=== PATIENT | female | born 1960 | race Caucasian/White ===

== ENCOUNTER 2023-11-12 11:10 | Emergency (ER) | payer OTHER ==
[~2023-11-12] VITALS: Ht 149.9 cm; Wt 76.0 kg
[2023-11-12] MEDS ORDERED: TORSEMIDE10 MG PO (11:23)
[2023-11-12] MEDS ORDERED: COLCRYS0.6 MG PO (11:23)
[2023-11-12] MEDS ORDERED: LISINOPRIL20 MG PO (11:24)
[2023-11-12] MEDS ORDERED: OMEPRAZOLE20 MG PO (11:24)
[2023-11-12] MEDS ORDERED: ALLOPURINOL100 MG PO (11:25)
[2023-11-12] MEDS ORDERED: VITAMIN D21250 MCG PO (11:26)
[2023-11-12] MEDS ORDERED: METFORMIN HCL500 M2 PO (11:27)
[2023-11-12] MEDS ORDERED: K-TAB ER20 MEQ PO (11:27)
[2023-11-12 11:46] LABS: BASOPHILS 1.1 % (0-2); EOSINOPHILS 1.2 % (0-6); HEMATOCRIT 38.5 % (35.0-50.0); MCH 30.1 (27-36); MCHC 33.8 g/dl (30-36); MCV 89.2 fl (81-99); MONOCYTES 5.9 % (0-12); NEUTROPHILS 70.8 % (39-80); PLATELET COUNT 175 K/uL (140-440); RBC 4.31 M/ul (4.3-5.7); RDW 15.8 (10.5-15.0)
[2023-11-12 12:01] LABS: ALBUMIN 3.7 g/dL (3.4-5.0); ALBUMIN/GLOBULIN RATIO 1.16 (1.1-2.4); ANION GAP 16.5 (7-21); BILIRUBIN, TOTAL 0.5 ng/dL (0.2-1.0); BUN/CREATININE RATIO 22.85 (6.0-28.6); CALCIUM 9.6 mg/dL (8.5-10.1); CREATININE, SERUM 1.05 mg/dL (0.55-1.02); MAGNESIUM 1.2 mg/dL (1.8-2.4); POTASSIUM 4.5 mmol/L (3.5-5.1); PROTEIN, TOTAL 6.9 g/dL (6.4-8.2)
[2023-11-12] MEDS ORDERED: MAGNESIUM SULFATE 2 GM/50 ML BAG IV ONE (13:15)
[2023-11-12] MEDS ORDERED: PHILLIPS500 MG PO (13:40)
[2023-11-12 15:18] VITALS: BP 135/80
== END 2023-11-12 15:18 | disposition home or self-care (01) ==
LOC: ED 11:10
PROVIDERS: Family Medicine
DX: E83.42 Hypomagnesemia (principal); S00.03XA Contusion of scalp, initial encounter; E11.9 Type 2 diabetes mellitus without complications; I10 Essential (primary) hypertension; W18.30XA Fall on same level, unspecified, initial encounter; Z96.643 Presence of artificial hip joint, bilateral; Z91.040 Latex allergy status; Z88.8 Allergy status to other drugs, medicaments and biological substances; Z79.899 Other long term (current) drug therapy; Z79.84 Long term (current) use of oral hypoglycemic drugs
CPT/HCPCS: 36415; 70450; 72100; 72125; 73502; 80053; 83735; 85025; 96365; 99284-25; J3475

== ENCOUNTER 2024-04-22 22:54 | Observation (INO) | payer MEDICARE ==
[~2024-04-22] VITALS: Ht 149.9 cm; Wt 75.0 kg
[~2024-04-22 22:54] MED LIST: ALLOPURINOL100 MG PO; COLCRYS0.6 MG PO; K-TAB ER20 MEQ PO; LISINOPRIL20 MG PO; METFORMIN HCL500 M2 PO; OMEPRAZOLE20 MG PO; PHILLIPS500 MG PO; TORSEMIDE10 MG PO; VITAMIN D21250 MCG PO
[2024-04-22 23:13] LABS: HEMOGLOBIN 14.3 g/dL (12.0-18.0); MONOCYTES 6.3 % (0-12)
[2024-04-22 23:16] LABS: EOSINOPHILS 1.3 % (0-6); HEMATOCRIT 41.6 % (35.0-50.0); LYMPHOCYTES 29.6 % (24-44); MCH 31.1 (27-36); MCHC 34.3 g/dl (30-36); MCV 90.6 fl (81-99); NEUTROPHILS 61.8 % (39-80); PLATELET COUNT 169 K/uL (140-440); RBC 4.59 M/ul (4.3-5.7); RDW 15.8 (10.5-15.0)
[2024-04-22 23:35] LABS: ALBUMIN 3.8 g/dL (3.4-5.0); ALBUMIN/GLOBULIN RATIO 1.03 (1.1-2.4); ALCOHOL, MEDICAL <3 ng/dL (<3); ALKALINE PHOSPHATASE 72 U/L (46-116); ALT (SGPT) 35 U/L (14-59); ANION GAP 17.1 (7-21); AST (SGOT) 25 U/L (15-37); BILIRUBIN, TOTAL 0.3 ng/dL (0.2-1.0); BUN/CREATININE RATIO 16.84 (6.0-28.6); CALCIUM 9.8 mg/dL (8.5-10.1); CARBON DIOXIDE 22 mmol/L (21-32); CHLORIDE 99 mmol/L (98-107); CREATININE, SERUM 0.95 mg/dL (0.55-1.02); GLOMERULAR FILTRATION RATE,EST 66 mL/min (>60); POTASSIUM 4.1 mmol/L (3.5-5.1); PROTEIN, TOTAL 7.5 g/dL (6.4-8.2); UREA NITROGEN 16 mg/dL (7-18)
[2024-04-23] VITALS (9 sets, daily range): BP systolic 120–147; BP diastolic 55–667
[2024-04-23 00:46] LABS: BILIRUBIN, URINE NEGATIVE (negative); BLOOD/HGB, URINE NEGATIVE (Negative); KETONE, URINE NEGATIVE (Negative); LEUK ESTERASE, URINE NEGATIVE (negative); NITRITE, URINE NEGATIVE (negative)
[2024-04-23 01:00] LABS: AMPHETAMINES, URINE NEGATIVE (NEGATIVE); BARBITURATES, URINE NEGATIVE (NEGATIVE); BENZODIAZEPINE, URINE NEGATIVE (NEGATIVE); BUPRENORPHINE, URINE NEGATIVE (NEGATIVE); CANNABINOID, URINE NEGATIVE (NEGATIVE); COCAINE, URINE NEGATIVE (NEGATIVE); ECSTASY, URINE NEGATIVE (NEGATIVE); FENTANYL, URINE NEGATIVE (NEGATIVE); METHADONE, URINE NEGATIVE (NEGATIVE); OPIATES, URINE NEGATIVE (NEGATIVE); OXYCODONE, URINE NEGATIVE (NEGATIVE); PHENCYCLIDINE, URINE NEGATIVE (NEGATIVE)
[2024-04-23] MEDS ORDERED: ondansetron HCL 4 MG/2 ML VIAL IV PRN ×2 (01:30→09:15)
[2024-04-23] MEDS ORDERED: CLOPIDOGREL BISULFATE 75 MG TAB PO ONE (01:30)
[2024-04-23] MEDS ORDERED: ASPIRIN 81 MG CHEW PO ONE (01:30)
[2024-04-23] MEDS ORDERED: ACETAMINOPHEN 325 MG TAB PO PRN ×2 (01:30→09:15)
--- NOTE | 2024-04-23 02:17 | NUR ---
PATIENT ARRIVED TO THE FLOOR VIA STRETCHER. PATIENT TRANSFFERED BY STAFF FROM STRETCHER TO HOSPITAL BED. PATIENTS VITALS TAKEN AND RECORDED. PATIENTS ADMISSION COMPLETED. PATIENT ORIENTED TO ROOM AND PLAN OF CARE. PATIENTS PRIMARY RN REMAINS IN ROOM. BED ALARM ON FOR SAFETY.
--- NOTE | 2024-04-23 03:05 | NUR ---
0200 - pt arrived from ed via stretcher. Total help needed to transfer to bed. Pt on room air, alert and oriented x4. Cooperative with admit questions and assessments. On room air, clear lungs bilat. SL LAC patent. LBM 04/22, no c/o CP, speech clear, slight R lip droopiness noted. abd aoft. involuntary tremors in hands noted. very weak stiff LE, edema 3+ ankles and feet, elevated. Pure wick in place, patent draining clear yellow urine.
--- NOTE | 2024-04-23 04:29 | NUR ---
Resting, eys closed, no s/sx distress, tele#[address] in place, SR. pure wick in place
--- NOTE | 2024-04-23 06:27 | NUR ---
Has slept since admission. On room air, clear lungs, tele#[address] SR[address] denies c/o CP. pure wick in place, draining clear yellow urine. LE edema improved. R ankle/foot 2+, L ankle/foot 1+, elevated, helped with turning and repositioning
--- NOTE | 2024-04-23 07:02 | NUR ---
Pt report received from BAKARI Jaime. Pt is resting supine in bed, eyes closed, breathing is regular, even and non-labored. She awakens easily to quiet noise while I was updating the white board. Pt requested a sip of water and I assisted her to take this as she seemed stiff. Side rails up, call light in reach.
[2024-04-23 08:22] LABS: CHOLESTEROL/HDL RATIO 4.3
[2024-04-23] MEDS ORDERED: bisacodyL 10 MG SUPP PR PRN (09:15)
[2024-04-23] MEDS ORDERED: GLUCAGON,HUMAN RECOMBINANT 1 MG/ML VIAL SUB-Q PRN (09:15)
[2024-04-23] MEDS ORDERED: DEXTROSE 5% 1,000 ML IV PRN (09:15)
[2024-04-23] MEDS ORDERED: DEXTROSE 50% 50 ML SYR IV PRN ×2 (09:15)
[2024-04-23] MEDS ORDERED: IBLOOD GLUCOSE TEST STRIP 1 EA TEST XX PRN (09:15)
--- NOTE | 2024-04-23 09:26 | NUR ---
PATIENT SITTING UP IN BED, VISITOR IN ROOM. VITALS AND I&O'S DONE AND CHARTED. WARM WASHCLOTH GIVEN. AM CARE DONE. CALL LIGHT INR EACH. NO FURTHER NEEDS AT THIS TIME.
[2024-04-23] MEDS ORDERED: allopurinoL 100 MG TAB PO SCH (09:35)
[2024-04-23] MEDS ORDERED: PANTOPRAZOLE SODIUM 40 MG TABEC PO SCH (09:35)
[2024-04-23] MEDS ORDERED: DULOXETINE HCL 30 MG CAP PO SCH (09:35)
[2024-04-23] MEDS ORDERED: CLOPIDOGREL BISULFATE 75 MG TAB PO SCH (09:45)
[2024-04-23] MEDS ORDERED: ASPIRIN 81 MG CHEW PO SCH (09:45)
[2024-04-23] MEDS ORDERED: KETOCONAZOLE120 ML TOP (09:52)
[2024-04-23] MEDS ORDERED: DULOXETINE HCL30 MG PO (09:53)
[2024-04-23] MEDS ORDERED: GLIPIZIDE ER2.5 MG PO (09:54)
[2024-04-23] MEDS ORDERED: POTASSIUM CHLO10 ME2 PO (09:55)
--- NOTE | 2024-04-23 09:56 | NUR ---
PATIENT ALERT AND ORIENTED IN BED. SIGNIFICANT OTHER AT BEDSIDE. VERIFIED DEMO GRAPHICS. PATIENT LIFES IN SINGLE LEVEL HOME WITH SIGNIFICANT OTHER. 3 STEPS TO GET INSIDE, HAS SOME DIFFICULTY BUT SHE IS ABLE TO USE THE STEPS. SHE HAS A WALKER AND A CANE. SHE PRIMARILY USES THE WALKER FOR AMBULATION. SHE DOES NOT DRIVE, SIGNIFICANT OTHER PROVIDES TRANSPORTATION. ABLE TO PAY FOR UTILITIES AND OBTAIN FOOD AND MEDICATIONS. NO FINANCIAL HARDSHIP. SHE PLANS TO RETURN HOME WHEN MEDICALLY STABLE. PENDING THERAPY EVALUATIONS FOR POTENTIAL NEEDS AT CT.
[2024-04-23] MEDS ORDERED: MAGNESIUM OXID500 MG PO (09:57)
--- NOTE | 2024-04-23 11:38 | NUR ---
UR CLINICAL REVIEW: 2 MN FOR VERSALUS-MEETS OBS FOR TIA MEDICARE OBS 04/23/24 @ 0910 ORDER MATCHES REG NO AUTH REQUIRED PER MEDICARE GUIDELINES DISCHARGE PENDING FURTHER STUDIES AND EVALUATIONS 04/24/24
[2024-04-23] MEDS ORDERED: PHARMACY RENAL DOSE ADJUSTMENT 1 DOSE MISC PO SCH (12:00)
[2024-04-23] MEDS ORDERED: IBLOOD GLUCOSE TEST STRIP 1 EA TEST VI SCH (12:00)
[2024-04-23] MEDS ORDERED: INSULIN LISPRO 100 UNIT/ML ML SUB-Q SCH (12:00)
--- NOTE | 2024-04-23 12:32 | NUR ---
MED REC COMPLETE
--- NOTE | 2024-04-23 13:22 | NUR ---
Received PC from [employer] notifying us that the MRI results for this pt are resulted. Dr. Murrieta notified.
--- NOTE | 2024-04-23 19:28 | NUR ---
Awake, no c/o CP, no SOB, alert and oriented x4, light R mouth droopines noted, not much difference with hand molecular geneticist. Tele dc'd, no IV. edema 2+ R foot and 1+ L ankle/foot. turns and repositions self in bed. tolerating diet well. no other c/o
[2024-04-23] MEDS ORDERED: ATORVASTATIN 40 MG TAB PO SCH (21:00)
[2024-04-23] MEDS ORDERED: MELATONIN 3 MG TAB PO PRN (21:00)
--- NOTE | 2024-04-24 00:26 | NUR ---
Resting, eyes closed, no s/sx distress. purewick in place, draining clear yellow urine. LE edema, elevated. turns and repositions self in bed
[2024-04-24 02:25] VITALS: BP 106/72
--- NOTE | 2024-04-24 02:49 | NUR ---
Awakens easily, coperative with vitals and assessment. Repositioned in bed, jaylen perez changed. edema to LE 2+ L midcalf to toes, pitting, 1+ R ankle/foot, elevated w pillows, denies CP. red tender area formed IV site LAC
--- NOTE | 2024-04-24 04:41 | NUR ---
resting, eyse closed, on room air. pure wick in place, LE elevated
[2024-04-24 05:56] LABS: EOSINOPHILS 1.5 % (0-6); HEMATOCRIT 39.2 % (35.0-50.0); HEMOGLOBIN 13.2 g/dL (12.0-18.0); LYMPHOCYTES 27.2 % (24-44); MCH 30.4 (27-36); MCHC 33.8 g/dl (30-36); MCV 89.9 fl (81-99); MONOCYTES 6.1 % (0-12); NEUTROPHILS 64.2 % (39-80); PLATELET COUNT 137 K/uL (140-440); RBC 4.36 M/ul (4.3-5.7); RDW 15.5 (10.5-15.0)
[2024-04-24 06:16] LABS: ALBUMIN 3.3 g/dL (3.4-5.0); BILIRUBIN, TOTAL 0.4 ng/dL (0.2-1.0); BUN/CREATININE RATIO 17.58 (6.0-28.6); CREATININE, SERUM 0.91 mg/dL (0.55-1.02); PROTEIN, TOTAL 6.6 g/dL (6.4-8.2)
[2024-04-24 06:48] VITALS: BP 108/58
[2024-04-24 06:49] VITALS: BP 108/58
--- NOTE | 2024-04-24 07:17 | NUR ---
VERBAL REPORT RECEIVED FROM BAKARI NICE. PT AWAKE AND ALERT IN BED, NO REQUESTS AT THIS TIME.
--- NOTE | 2024-04-24 07:47 | NUR ---
PT RESTING IN BED. BG COMPLETE. PT REQ PUREWICK TO BE REMOVED. PUREWICK REMOVED. BRIEF CHECKED, CLEAN AND DRY. WARM WASH RAG PROVIDED. PT REFUSED GETTING UP TO CHAIR. PT REQ SHOWER. PLAN MADE TO SHOWER AFTER BREAKFAST PER PT REQ. PT REPOS IN BED. ICE WATER PROVIDED. PT DENIES ANY FURTHER NEEDS AT THIS TIME. CALL LIGHT IN REACH.
[2024-04-24] MEDS ORDERED: CLOPIDOGREL75 MG PO (09:11)
[2024-04-24] MEDS ORDERED: ASPIRIN81 MG PO (09:12)
[2024-04-24] MEDS ORDERED: CRESTOR40 MG PO (09:12)
[2024-04-24 09:32] VITALS: BP 124/75
--- NOTE | 2024-04-24 09:37 | NUR ---
pt resting in bed. vitals complete. breakfast tray cleared. pt declines shower and states "i'll have my help me with it when we leave". pt also declines getting up to the chair at this time. ice water refreshed. declines need to void at this time. declines any needs at this time, call light in reach.
--- NOTE | 2024-04-24 09:49 | NUR ---
REFERRAL WITH FACESHEET, ORDERS, H&P, DC SUMMARY FAXED TO [facility]
--- NOTE | 2024-04-24 10:39 | NUR ---
DISCUSSED DISCHARGE INSTRUCTIONS WITH PT, PT VERBALIZES UNDERSTANDING. PT STATES SHE WANTS TO WAIT FOR HER TO ARRIVE AND HAVE HIM ASSIST HER TO GET DRESS.
--- NOTE | 2024-04-24 10:58 | NUR ---
PT RESTING IN BED. DECLINES ANY NEEDS AT THIS TIME. RR EVEN AND UNLABORED. CALL LIGHT IN REACH
--- NOTE | 2024-04-24 11:48 | NUR ---
PT'S SPOUSE ARRIVES, ASSIST PT TO DRESS. PT LEAVES UNIT VIA WHEELCHAIR ESCORTED BY THIS RN TO PRIVATE CAR DRIVEN BY SPOUSE.
--- NOTE | 2024-04-25 20:28 | EKG ---
[facility] [address] [facility] [address] [facility] [place], [place] [address] Signed Normal sinus rhythm Normal ECG No previous ECGs available Confirmed by Samra Lawrence DO ([id number]) on 04/25/2024 8:28:19 PM Electronically Signed By: SAMRA LAWRENCE DO 04/25/242027 PATIENT NAME: CHRISTY DUARTE Electrocardiogram DATE OF : 58 PHYSICIAN: SAMRA LAWRENCE DO REPORT #: [id number] REPORT IS CONFIDENTIAL AND NOT TO BE RELEASED WITHOUT AUTHORIZATION
== END 2024-04-24 11:48 | disposition home or self-care (01) ==
LOC: ED 22:54 → MS 22:55
PROVIDERS: Internal Medicine; ADMIT Student in an Organized Health Care Education/Training Program; ATTEND Student in an Organized Health Care Education/Training Program
DX: G45.9 Transient cerebral ischemic attack, unspecified (principal); I10 Essential (primary) hypertension; E78.5 Hyperlipidemia, unspecified; K21.9 Gastro-esophageal reflux disease without esophagitis; G47.30 Sleep apnea, unspecified; E11.9 Type 2 diabetes mellitus without complications; M10.9 Gout, unspecified; F32.9 Major depressive disorder, single episode, unspecified; Z79.84 Long term (current) use of oral hypoglycemic drugs; Z79.899 Other long term (current) drug therapy; Z91.040 Latex allergy status
CPT/HCPCS: 36415; 51701; 70450; 70496; 70498; 70544; 70551; 80053; 80061; 80307; 81003; 83036; 84484; 85025; 85060; 93005; 93010; 93306; 96374; 97161; 97165; 99285-25; A9270; G0378; G0480; J1815; J2405; Q9967

== ENCOUNTER 2024-11-02 15:30 | Observation (INO) | payer MEDICARE, OTHER ==
[~2024-11-02] VITALS: Ht 149.9 cm; Wt 74.2 kg
[~2024-11-02 15:30] MED LIST changes: +ASPIRIN81 MG PO; +CLOPIDOGREL75 MG PO; +CRESTOR40 MG PO; +DULOXETINE HCL30 MG PO; +GLIPIZIDE ER2.5 MG PO; +KETOCONAZOLE120 ML TOP; +MAGNESIUM OXID500 MG PO; +POTASSIUM CHLO10 ME2 PO
[2024-11-02 15:54] LABS: BASOPHILS 0.7 % (0.1-1.2); EOSINOPHILS 1.5 % (0.7-5.8); LYMPHOCYTES 24.0 % (19.3-51.7); MCH 28.6 PG (25.6-32.2); MCHC 32.6 g/dL (32.2-35.5); MCV 87.7 fL (79.4-94.8); MONOCYTES 5.0 % (4.7-12.5); NEUTROPHILS 68.5 % (34.0-71.1); RBC 4.89 M/uL (3.93-5.22)
[2024-11-02 16:00] LABS: INR 0.97 (0.80-1.30); PROTIME 12.2 Sec (11.2-14.2)
[2024-11-02 16:06] LABS: ALT (SGPT) 28.0 U/L (14-59); AST (SGOT) 16.0 U/L (15-37); GLOMERULAR FILTRATION RATE,EST 53.0 mL/min (>60); PROTEIN, TOTAL 7.2 g/dL (6.4-8.2); UREA NITROGEN 19.0 mg/dL (7-18)
[2024-11-02] MEDS ORDERED: ACETAMINOPHEN 325 MG TAB PO PRN (19:15)
[2024-11-02] MEDS ORDERED: CLOPIDOGREL BISULFATE 75 MG TAB PO ONE (19:30)
--- NOTE | 2024-11-02 20:08 | NUR ---
PT TRANSFERRED TO FLOOR VIA STRETCHER. GIVEN REPORT TO BAKARI DURAN. VS TAKEN, VSS. ADMISSION SCREEN PERFORMED. PT HAS CELL PHONE, WILL GIVE PURSE TO DAUGHTER TO TAKE HOME. SUPPORTIVE FAMILY AT BEDSIDE.
[2024-11-02 20:16] VITALS: BP 133/67
[2024-11-02] MEDS ORDERED: Insulin Regular, Human 100 UNIT/ML ML SUB-Q SCH (21:00)
[2024-11-02] MEDS ORDERED: IBLOOD GLUCOSE TEST STRIP 1 EA TEST VI SCH (21:00)
--- NOTE | 2024-11-02 21:30 | NUR ---
IN RM TO CHECK BG. BG LEVEL WAS 127. NO SS INSULIN NEEDED AT THIS TIME. pt INFORMED THIS RN THAT SHE HAD BEEN INCONTINENT AT THIS TIME AND NEEDED CHANGED. THIS RN AND ROLLER BEARING INSPECTOR MARISA CHANGED pt AND CHANGED THE LINENS. pt EDUCATED ABOUT USING THE CALL LIGHT WHEN SHE HAD TO GO NEXT TIME. pt DENIES ANY OTHER NEEDS AT THIS TIME. CALL LIGHT WITHIN REACH.
--- NOTE | 2024-11-02 23:30 | NUR ---
pt RESTING IN THE BED WITH EYES CLOSED. RR EVEN AND UNLABORED. CALL LIGHT WITHIN REACH.
[2024-11-03] VITALS (11 sets, daily range): BP systolic 101–119; BP diastolic 58–84
--- NOTE | 2024-11-03 01:29 | NUR ---
IN RM TO DO ASSESSMENT AND VITAL SIGNS. pt HAS EXPRESSIVE APHASHIA WITH NO NEW DEFICITS. pt DENIES ANY OTHER NEEDS AT THIS TIME. CALL LIGHT WITHIN REACH.
--- NOTE | 2024-11-03 04:30 | NUR ---
pt RESTING IN THE BED WITH EYES CLOSED. RR EVEN AND UNLABORED. CALL LIGHT WITHIN REACH.
[2024-11-03 05:23] LABS: BASOPHILS 0.7 % (0.1-1.2); EOSINOPHILS 1.2 % (0.7-5.8); LYMPHOCYTES 13.4 % (19.3-51.7); MCH 29.1 PG (25.6-32.2); MCHC 32.7 g/dL (32.2-35.5); MCV 88.8 fL (79.4-94.8); MONOCYTES 6.1 % (4.7-12.5); NEUTROPHILS 78.2 % (34.0-71.1); RBC 4.47 M/uL (3.93-5.22)
--- NOTE | 2024-11-03 05:35 | NUR ---
IN RM TO DO VITAL SIGNS AND ASSESSMENT. pt UP TO THE BSC. pt PEED 400mL. 1PA WITH FWW. WATER REFRESHED. NO NEW DEFICITS AT THIS TIME. CALL LIGHT WITHIN REACH.
[2024-11-03 05:37] LABS: GLOMERULAR FILTRATION RATE,EST 79.0 mL/min (>60); UREA NITROGEN 18.0 mg/dL (7-18)
--- NOTE | 2024-11-03 07:20 | NUR ---
RECIEVED REPORT FROM BAKARI DURAN.
[2024-11-03 07:38] LABS: CHOLESTEROL/HDL RATIO 3.5; LDL CHOLESTEROL 105.0 mg/dL (< 129); NON-HDL CHOLESTEROL 133.0; TSH, 3RD GENERATION 2.563 uIU/mL (0.358-3.740); VLDL CHOLESTEROL 28.0
--- NOTE | 2024-11-03 07:45 | NUR ---
PT SITTING UP IN BED BRUSHING TEETH. PT STATES NO CURRENT NEEDS. CALL LIGHT WITHIN REACH.
[2024-11-03] MEDS ORDERED: Insulin Regular, Human 100 UNIT/ML ML SUB-Q SCH (08:00)
[2024-11-03] MEDS ORDERED: IBLOOD GLUCOSE TEST STRIP 1 EA TEST VI SCH ×2 (08:00→12:00)
--- NOTE | 2024-11-03 08:38 | NUR ---
ECHO AT THE BEDSIDE.
[2024-11-03] MEDS ORDERED: DEXTROSE 50% 50 ML SYR IV PRN ×2 (09:45)
[2024-11-03] MEDS ORDERED: ACETAMINOPHEN 325 MG TAB PO PRN (09:45)
[2024-11-03] MEDS ORDERED: DEXTROSE 5% 1,000 ML IV PRN (09:45)
[2024-11-03] MEDS ORDERED: IBLOOD GLUCOSE TEST STRIP 1 EA TEST XX PRN (09:45)
[2024-11-03] MEDS ORDERED: GLUCAGON,HUMAN RECOMBINANT 1 MG/ML VIAL SUB-Q PRN (09:45)
[2024-11-03] MEDS ORDERED: PANTOPRAZOLE SODIUM 40 MG TABEC PO SCH (10:00)
[2024-11-03] MEDS ORDERED: DULOXETINE HCL 30 MG CAP PO SCH (10:01)
[2024-11-03] MEDS ORDERED: ROPINIROLE HCL 0.25 MG TAB PO SCH (10:01)
[2024-11-03] MEDS ORDERED: ASPIRIN 81 MG CHEW PO SCH (10:02)
[2024-11-03] MEDS ORDERED: CLOPIDOGREL BISULFATE 75 MG TAB PO SCH (10:02)
[2024-11-03] MEDS ORDERED: PHARMACY RENAL DOSE ADJUSTMENT 1 DOSE MISC PO SCH (12:00)
[2024-11-03] MEDS ORDERED: INSULIN LISPRO 100 UNIT/ML ML SUB-Q SCH (12:00)
--- NOTE | 2024-11-03 12:03 | NUR ---
PT UP TO CHAIR EATING LUNCH AND VISITING WITH . PT STATES NO CURRENT NEEDS, PT TAKES PO MEDICATION W/O DIFFICULTY. CALL LIGHT WITHIN REACH.
[2024-11-03] MEDS ORDERED: EZETIMIBE10 MG PO (13:40)
[2024-11-03] MEDS ORDERED: ROPINIROLE HCL0.5 MG PO (13:40)
[2024-11-03] MEDS ORDERED: ROSUVASTATIN CA40 MG PO (13:42)
--- NOTE | 2024-11-03 15:16 | NUR ---
PATIENT IN BED AT THIS TIME. MUSIC SOUND LIGHT TECHNICIAN CHARTED HOURLY ROUNDS. MUSIC SOUND LIGHT TECHNICIAN OFFERED SHOWER TO PATIENT, PATIENTS DELINED AT THIS TIME. CALL LIGHT WITHIN REACH, NO FURTHER NEEDS.
--- NOTE | 2024-11-03 16:46 | NUR ---
PATIENT IN BED AT THIS TIME. PIPE AND BOILER COVERS SUPERVISOR ASSISTED PATIENT WITH SHOWER AND THEN ASSISTED PATIENT BACK TO CHAIR FOR DINNER. CALL LIGHT WITHIN REACH, NO FURTHER NEEDS AT THIS TIME.
[2024-11-03] MEDS ORDERED: ATORVASTATIN 40 MG TAB PO SCH (17:00)
--- NOTE | 2024-11-03 17:51 | NUR ---
PT UP TO CHAIR, LEFT EAR IRRIGATED WITH NS FLUSH PER DR. LAWRENCE AND PT REQUEST. PT TOLERATES WELL, SMALL AMOUNT OF EAR WAX REMOVED. PT AMBULATES TO BED WITH FWW AND SBA. ADDITIONAL ICE WATER GIVEN. PT STATES NO FURTHER NEEDS AT THIS TIME, CALL LIGHT WITHIN REACH.
--- NOTE | 2024-11-03 17:56 | NUR ---
PATIENT IN BED AT THIS TIME. SLICING MACHINE FEEDER CHARTED VITALS AND I&O'S. CALL LIGHT WITHIN REACH, NO FURTHER NEEDS AT THIS TIME.
--- NOTE | 2024-11-03 18:48 | NUR ---
PT UP TO RESTROOM WITH FWW AND SBA, VOIDS W/O DIFFICULTY. PT BACK TO BED, FAMILY AT THE BEDSIDE. PT STATES NO FURTHER NEEDS AT THIS TIME, CALL LIGHT WITHIN REACH.
--- NOTE | 2024-11-03 19:54 | NUR ---
RECEIVED REPORT. PT ALERT IN BED. NO NEEDS PRESENTLY, CALL LIGHT IN REACH
[2024-11-03] MEDS ORDERED: MELATONIN 3 MG TAB PO PRN (21:00)
--- NOTE | 2024-11-03 21:30 | NUR ---
VITALS, ASSESSMENT, EVENING MEDS. ASSISTED TO BATHROOM 1PA WITH FWW. NO NEEDS PRESENTLY. PT REPORTS HER APHASIA COMES AND GOES, THOUGH GENERALLY IS IMPROVED FROM LAST NIGHT. NO NEEDS, CALL LIGHT INREACH
--- NOTE | 2024-11-03 23:45 | NUR ---
PT RESTING IN BED WITH EYES CLOSED, RISE AND FALL OF CHEST OBSERVED. CALL LIGHT IN REACH
--- NOTE | 2024-11-04 00:56 | NUR ---
PT RESTING IN BED WITH EYES CLOSED. RISE AND FALL OF CHEST OBSERVED, CALL LIGHT IN REACH
--- NOTE | 2024-11-04 03:37 | NUR ---
PT RESTING IN BED WITH EYES CLOSED, RISE AND FALL OF CHEST OBSERVED. CALL LIGHT IN REACH
[2024-11-04 05:15] VITALS: BP 108/72
[2024-11-04 05:17] LABS: BASOPHILS 1.0 % (0.1-1.2); EOSINOPHILS 2.5 % (0.7-5.8); LYMPHOCYTES 22.4 % (19.3-51.7); MCH 29.1 PG (25.6-32.2); MCHC 32.7 g/dL (32.2-35.5); MCV 89.0 fL (79.4-94.8); MONOCYTES 8.6 % (4.7-12.5); NEUTROPHILS 65.1 % (34.0-71.1); RBC 4.46 M/uL (3.93-5.22)
--- NOTE | 2024-11-04 05:22 | NUR ---
VITALS. REFRESHED ICE WATER. NO OTHER NEEDS, CALL LIGHT IN REACH
[2024-11-04 05:35] LABS: ALT (SGPT) 23.0 U/L (14-59); AST (SGOT) 12.0 U/L (15-37); GLOMERULAR FILTRATION RATE,EST 69.0 mL/min (>60); PROTEIN, TOTAL 6.5 g/dL (6.4-8.2); UREA NITROGEN 18.0 mg/dL (7-18)
--- NOTE | 2024-11-04 07:05 | NUR ---
RECIEVED REPORT FROM BAKARI RIOJAS. PT RESTING IN BED WITH EYES CLOSED, BREATHING EVEN AND UNLABORED. CALL LIGHT WITHIN REACH.
[2024-11-04] MEDS ORDERED: MAGNESIUM OXIDE 400 MG TABLET PO ONE (08:00)
--- NOTE | 2024-11-04 08:39 | NUR ---
PT UP TO RESTROOM WITH SBA AND FWW. PT UP TO CHAIR AFTER RESTROOM. PT STATES NO CURRENT NEEDS, TAKES PO MEDICATIONS W/O DIFFICULTY. NO EXPRESSIVE APHASIA PRESENT AT THIS TIME, PT STATES SHE FEELS LIKE IT HAS "GOTTEN BETTER". CALL LIGHT WITHIN REACH.
[2024-11-04 09:01] VITALS: BP 112/72
--- NOTE | 2024-11-04 09:02 | NUR ---
HOURLY ROUNDING. PATIENT IS SITTING IN RECLINER. PATIENT APPEARS IN A GOOD MOOD. AM CARE HAS BEEN COMPLETED, CALL LIGHT HAS BEENPLACED WITHIN REACH
[2024-11-04 09:29] VITALS: BP 112/72
[2024-11-04] MEDS ORDERED: CLOPIDOGREL75 MG PO (09:37)
--- NOTE | 2024-11-04 10:30 | NUR ---
PT UP TO CHAIR. NIH SCORE 0. IV DC'D WNL. DC PACKET AND EDUCATION GIVEN, PT STATES ALL QUESTIONS HAVE BEEN ANSWERED. PT FAMILY AT THE BEDSIDE ASSISTING PT WITH GETTING DRESSED AND GATHERING BELONGINGS. PT STATES NO FURTHER NEEDS AT THIS TIME, CALL LIGHT WITHIN REACH.
[2024-11-04 10:52] VITALS: BP 114/66
[2024-11-04 10:55] VITALS: BP 114/66
--- NOTE | 2024-11-04 17:48 | EKG ---
[facility] [address] [place] [address] Signed Normal sinus rhythm Left axis deviation Abnormal ECG When compared with ECG of 22-APR-2024 23:09, No significant change was found Confirmed by Samra Lawrence DO ([id number]) on 11/04/2024 5:48:41 PM Electronically Signed By: SAMRA LAWRENCE DO 11/04/24 1748 PATIENT NAME: CHRISTY DUARTE Electrocardiogram DATE OF : 58 PHYSICIAN: SAMRA LAWRENCE DO REPORT #: [id number] REPORT IS CONFIDENTIAL AND NOT TO BE RELEASED WITHOUT AUTHORIZATION
--- NOTE | 2024-11-05 11:19 | NUR ---
UR RETRO CLINICAL REVIEW: 2MN MANSI, MEETS OBS FOR TIA STROKE SYMPTOMS, HISTORY OF CVA, NEED FOR FURTHER NEURO EVAL, CARDIAC MONITORING, PT/OT EVAL MEDICARE OBS 11/02/2024 @ 1914 ORDER MATCHES REG NO AUTH REQUIRED PER MEDICARE RULES DC TO HOME
== END 2024-11-04 11:00 | disposition home or self-care (01) ==
LOC: ED 15:30 → MS 15:31
PROVIDERS: Emergency Medicine; ADMIT Student in an Organized Health Care Education/Training Program; ATTEND Student in an Organized Health Care Education/Training Program
DX: G45.9 Transient cerebral ischemic attack, unspecified (principal); I10 Essential (primary) hypertension; E78.5 Hyperlipidemia, unspecified; K21.9 Gastro-esophageal reflux disease without esophagitis; E11.9 Type 2 diabetes mellitus without complications; M10.9 Gout, unspecified; H61.22 Impacted cerumen, left ear; G25.81 Restless legs syndrome; F32.9 Major depressive disorder, single episode, unspecified; Z86.73 Personal history of transient ischemic attack (TIA), and cerebral infarction without residual deficits; Z91.040 Latex allergy status; Z88.8 Allergy status to other drugs, medicaments and biological substances; Z79.82 Long term (current) use of aspirin; Z79.84 Long term (current) use of oral hypoglycemic drugs; Z79.899 Other long term (current) drug therapy
CPT/HCPCS: 36415; 70450; 70496; 70498; 80048; 80053; 80061; 83036; 83735; 84439; 84443; 84484; 85025; 85610; 85730; 93005; 93010; 93306; 97161; 97530; 99285-25; A9270; G0378; J1815; Q9967

== ENCOUNTER 2025-01-11 20:52 | Emergency (ER) | payer MEDICARE, OTHER ==
[~2025-01-11] VITALS: Ht 149.9 cm; Wt 77.0 kg
[~2025-01-11 20:52] MED LIST changes: +EZETIMIBE10 MG PO; +ROPINIROLE HCL0.5 MG PO; +ROSUVASTATIN CA40 MG PO
[2025-01-11] MEDS ORDERED: IBLOOD GLUCOSE TEST STRIP 1 EA TEST XX ONE (21:00)
[2025-01-11 21:57] LABS: BASOPHILS 0.4 % (0.1-1.2); EOSINOPHILS 1.0 % (0.7-5.8); LYMPHOCYTES 21.3 % (19.3-51.7); MCH 29.1 PG (25.6-32.2); MCHC 32.6 g/dL (32.2-35.5); MCV 89.3 fL (79.4-94.8); MONOCYTES 6.0 % (4.7-12.5); NEUTROPHILS 71.0 % (34.0-71.1); RBC 4.40 M/uL (3.93-5.22)
[2025-01-11 22:10] LABS: INR 0.99 (0.80-1.30); PROTIME 12.7 Sec (11.2-14.2)
[2025-01-11] MEDS ORDERED: TENECTEPLASE 50 MG/10 ML VIAL IV ONE (22:15)
[2025-01-11 22:18] LABS: ALT (SGPT) 19.0 U/L (14-59); AST (SGOT) 12.0 U/L (15-37); GLOMERULAR FILTRATION RATE,EST 78.0 mL/min (>60); PROTEIN, TOTAL 6.8 g/dL (6.4-8.2); UREA NITROGEN 16.0 mg/dL (7-18)
[2025-01-11] MEDS ORDERED: METOPROLOL TARTRATE 5 MG/5 ML VIAL IV ONE (23:00)
[2025-01-12 00:20] VITALS: BP 128/77
[2025-01-12 00:43] LABS: BLOOD/HGB, URINE NEGATIVE (Negative); KETONE, URINE NEGATIVE (Negative); LEUK ESTERASE, URINE NEGATIVE (negative); NITRITE, URINE NEGATIVE (negative)
[2025-01-12 00:58] LABS: AMPHETAMINES, URINE NEGATIVE (NEGATIVE); BARBITURATES, URINE NEGATIVE (NEGATIVE); BENZODIAZEPINE, URINE NEGATIVE (NEGATIVE); CANNABINOID, URINE NEGATIVE (NEGATIVE); COCAINE, URINE NEGATIVE (NEGATIVE); ECSTASY, URINE NEGATIVE (NEGATIVE); FENTANYL, URINE NEGATIVE (NEGATIVE); METHADONE, URINE NEGATIVE (NEGATIVE); OPIATES, URINE NEGATIVE (NEGATIVE); OXYCODONE, URINE NEGATIVE (NEGATIVE); PHENCYCLIDINE, URINE NEGATIVE (NEGATIVE)
--- NOTE | 2025-01-13 16:22 | EKG ---
[facility] [address] [place] [address] Signed Normal sinus rhythm Left axis deviation Abnormal ECG When compared with ECG of 02-NOV-2024 15:55, No significant change was found Confirmed by Hoda Cloud MD () on 01/13/2025 4:22:21 PM Electronically Signed By: HODA CLOUD MD 01/13/25 1622 PATIENT NAME: CHRISTY DUARTE Electrocardiogram DATE OF : 58 PHYSICIAN: HODA CLOUD MD REPORT #: [id number] REPORT IS CONFIDENTIAL AND NOT TO BE RELEASED WITHOUT AUTHORIZATION
== END 2025-01-12 00:15 | disposition short-term general hospital (02) ==
LOC: ED 20:52
PROVIDERS: Family Medicine
DX: I67.82 Cerebral ischemia (principal); E11.9 Type 2 diabetes mellitus without complications; I10 Essential (primary) hypertension; G80.9 Cerebral palsy, unspecified; Z86.73 Personal history of transient ischemic attack (TIA), and cerebral infarction without residual deficits; Z96.643 Presence of artificial hip joint, bilateral; Z91.040 Latex allergy status; Z88.8 Allergy status to other drugs, medicaments and biological substances; Z79.899 Other long term (current) drug therapy; Z79.84 Long term (current) use of oral hypoglycemic drugs
CPT/HCPCS: 36415; 70450; 70496; 70498; 71045; 80053; 80307; 81003; 83735; 84484; 85025; 85610; 85730; 93005; 93010; 96374; 96375; 99285-25; J3101; Q3014; Q9967

== ENCOUNTER 2025-01-18 09:55 | Emergency (ER) | payer MEDICARE, OTHER ==
[~2025-01-18] VITALS: Ht 149.9 cm; Wt 77.0 kg
--- OUTSIDE RECORDS SUMMARY | 2025-01-18 10:02 | XMS ---
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 E.D. VISIT COUNT (12 MO.) [address] [facility] TOTAL 4 NOTE: Visits indicate total known visits. ED/UCC VISIT TRACKING (12 MO.) 01/18/2025 09:55 [facility] TYPE: Emergency COMPLAINT: - WEAKNESS 01/11/2025 20:53 [facility] TYPE: Emergency COMPLAINT: - WEAKNESS DIAGNOSES: - Allergy status to other drugs, medicaments and biological substances - Cerebral ischemia - Cerebral palsy, unspecified - Essential (primary) hypertension - Latex allergy status - intermediate (current) use of oral hypoglycemic drugs - Other remote computer terminal operator (current) drug therapy - Personal history of transient ischemic attack (TIA), and cerebral infarction without residual deficits - Presence of artificial hip joint, bilateral - Slurred speech - Type 2 diabetes mellitus without complications 11/02/2024 15:30 [facility] TYPE: Emergency COMPLAINT: - STROKE SYMPTOMS 04/22/2024 22:54 [facility] TYPE: Emergency COMPLAINT: - STOKE SYMPTOMS INPATIENT VISIT TRACKING (12 MO.) 01/12/2025 02:10 [facility] OR TYPE: Medical Surgical DIAGNOSES: - Cerebral infarction, unspecified - Stroke post TNK 11/02/2024 15:31 [facility] TYPE: Observation COMPLAINT: - TIA DIAGNOSES: - Allergy status to other drugs, medicaments and biological substances - Aphasia - Dysarthria and anarthria - Essential (primary) hypertension - Facial weakness - Gastro-esophageal reflux disease without esophagitis - Gout, unspecified - Hyperlipidemia, unspecified - Impacted cerumen, left ear - Latex allergy status - superintendent terminal (current) use of aspirin - intermediate (current) use of oral hypoglycemic drugs - Major depressive disorder, single episode, unspecified - Other remote computer terminal operator (current) drug therapy - Personal history of transient ischemic attack (TIA), and cerebral infarction without residual deficits - Restless legs syndrome - Transient cerebral ischemic attack, unspecified - Type 2 diabetes mellitus without complications 04/22/2024 22:55 [facility] TYPE: Observation COMPLAINT: - TIA DIAGNOSES: - Essential (primary) hypertension - Gastro-esophageal reflux disease without esophagitis - Gout, unspecified - Hyperlipidemia, unspecified - Latex allergy status - intermediate (current) use of oral hypoglycemic drugs - Major depressive disorder, single episode, unspecified - Other snf (current) drug therapy - Sleep apnea, unspecified - Slurred speech - Transient cerebral ischemic attack, unspecified - Type 2 diabetes mellitus without complications [email or web address]
[2025-01-18 10:17] LABS: BASOPHILS 0.9 % (0.1-1.2); EOSINOPHILS 1.1 % (0.7-5.8); LYMPHOCYTES 25.2 % (19.3-51.7); MCH 28.9 PG (25.6-32.2); MCHC 33.6 g/dL (32.2-35.5); MCV 86.1 fL (79.4-94.8); MONOCYTES 5.2 % (4.7-12.5); NEUTROPHILS 67.3 % (34.0-71.1); RBC 4.74 M/uL (3.93-5.22)
[2025-01-18 10:31] LABS: INR 0.99 (0.80-1.30); PROTIME 12.4 Sec (11.2-14.2)
[2025-01-18] MEDS ORDERED: PRAVASTATIN SOD10 MG PO (10:35)
[2025-01-18 11:04] LABS: ALT (SGPT) 22.0 U/L (14-59); AST (SGOT) 18.0 U/L (15-37); GLOMERULAR FILTRATION RATE,EST 76.0 mL/min (>60); PROTEIN, TOTAL 7.4 g/dL (6.4-8.2); UREA NITROGEN 20.0 mg/dL (7-18)
[2025-01-18] MEDS ORDERED: ACETAMINOPHEN 500 MG TAB PO ONE (15:45)
[2025-01-18 17:30] VITALS: BP 140/88
--- NOTE | 2025-01-20 10:42 | EKG ---
[facility] [address] [place] [address] Signed Normal sinus rhythm Low voltage QRS Borderline ECG When compared with ECG of 11-JAN-2025 21:29, No significant change was found Confirmed by Samra Lawrence DO ([id number]) on 01/20/2025 10:41:59 AM Electronically Signed By: SAMRA LAWRENCE DO 01/20/25 1042 PATIENT NAME: CHRISTY DUARTE Electrocardiogram DATE OF : 58 PHYSICIAN: SAMRA LAWRENCE DO REPORT #: [id number] REPORT IS CONFIDENTIAL AND NOT TO BE RELEASED WITHOUT AUTHORIZATION
== END 2025-01-18 17:34 | disposition home or self-care (01) ==
LOC: ED 09:55
PROVIDERS: Emergency Medicine
DX: I63.9 Cerebral infarction, unspecified (principal); I69.341 Monoplegia of lower limb following cerebral infarction affecting right dominant side; E11.9 Type 2 diabetes mellitus without complications; I10 Essential (primary) hypertension; G80.9 Cerebral palsy, unspecified; M10.9 Gout, unspecified; Z91.040 Latex allergy status; Z88.8 Allergy status to other drugs, medicaments and biological substances; Z79.02 Long term (current) use of antithrombotics/antiplatelets; Z79.84 Long term (current) use of oral hypoglycemic drugs; Z79.899 Other long term (current) drug therapy
CPT/HCPCS: 36415; 70450; 70496; 70498; 70551; 71045; 80053; 85025; 85610; 85730; 93005; 93010; 97161; 97165; 99285-25; A9270; Q9967